=== PATIENT | male | born 1990 | race African-American/Black ===

== ENCOUNTER 2017-10-30 04:11 | Emergency (ER) | payer SELFPAY ==
[~2017-10-30] VITALS: Ht 177.8 cm; Wt 70.0 kg
[2017-10-30] MEDS ORDERED: AMOXICILLIN/POTASSIUM CLAVULANATE 875/125MG TAB PO ONE (05:15)
[2017-10-30] MEDS ORDERED: IBUPROFEN 600MG TABLET PO ONE (05:15)
[2017-10-30] MEDS ORDERED: TETANUS, DIPHTHERIA, PERTUSSIS VAC/PF 0.5ML (>7YR OLD) IM ONE (05:15)
[2017-10-30 06:25] VITALS: BP 130/70
== END 2017-10-30 06:31 | disposition home or self-care (01) ==
LOC: ER 04:15
DX: S71.132A Puncture wound without foreign body, left thigh, initial encounter (principal); W54.0XXA Bitten by dog, initial encounter; Y93.89 Activity, other specified; Y92.89 Other specified places as the place of occurrence of the external cause; Y99.8 Other external cause status
CPT/HCPCS: 90471; 90715; 99283; Z7610